=== PATIENT | female | born 1935 | race Caucasian/White ===

== ENCOUNTER 2020-09-09 08:52 | Inpatient (IN) ==
[2020-09-09 09:50] LABS: Basophils % 0.5 %; Eosinophils % 0.7 %; Hematocrit 43.8 % (35.3-44.9); Hemoglobin 13.9 g/dL (11.5-15.4); Immature Granulocytes % 0.5 % (0-4); Lymphocytes % 22.9 %; Mean Corpuscular HGB Conc 31.7 g/dL (31.6-35.5); Mean Corpuscular Hemoglobin 30.9 pg (28.0-33.3); Mean Corpuscular Volume 97.3 fL (83.0-100.0); Mean Platelet Volume 11.1 fL (9.4-12.4); Monocytes # 0.4 K/mcL (0.0-1.3); Monocytes % 9.1 %; Neutrophils # 2.9 K/mcL (1.6-8.9); Platelet Count 186 K/mcL (140-400); Red Cell Distribution Width 13.1 % (11.5-14.5); Segmented Neutrophils % 66.3 %; White Blood Count 4.4 K/mcL (4.3-11.1)
[2020-09-09 09:57] LABS: INR 1.1; Prothrombin Time 12.2 Seconds (9.4-12.1)
[2020-09-09 09:59] LABS: Activated Partial Thrombo Time 27.5 Seconds (26.0-36.0)
[2020-09-09 10:12] LABS: BUN/Creatinine Ratio 23 (6-26); Blood Urea Nitrogen 15 mg/dL (8-23); Calcium 9.1 mg/dL (8.6-10.3); Carbon Dioxide 29 mEq/L (23-29); Chloride 102 mEq/L (98-107); Glucose 131 mg/dL (70-105); Osmolality,Calculated 297 (280-300); Potassium 3.8 mEq/L (3.5-5.1); Sodium 142 mEq/L (136-145); eGFR For African Americans > 60 (> 60); eGFR For Non-African Americans > 60 (> 60)
[2020-09-09 10:13] LABS: Troponin I < 0.03 ng/mL (< 0.04)
[2020-09-09] MEDS ORDERED: Furosemide 40 MG/4 ML VIAL IVP ONE (10:44)
[2020-09-09] MEDS ORDERED: Aspirin Enteric Coated 325 MG Tablet PO SCH (11:00)
[2020-09-09 11:18] LABS: Estimated Average Glucose 126 mg/dl
[2020-09-09 11:26] LABS: Thyroid Stimulating Hormone 2.626 mcIU/mL (0.340-5.600)
[2020-09-09] MEDS ORDERED: Isovue-370 500 ML BOTTLE IVP ONE (12:08)
[2020-09-09] MEDS ORDERED: *HR* Metoprolol 5 MG/5 ML VIAL IVP ONE (12:32)
[2020-09-09] MEDS ORDERED: Melatonin 3 MG TABLET PO PRN (15:23)
[2020-09-09] MEDS ORDERED: Ondansetron ODT 4 MG TAB.RAPDIS SL PRN (15:23)
[2020-09-09] MEDS ORDERED: Naloxone 0.4 MG/ML INJ IVP PRN (15:23)
[2020-09-09] MEDS ORDERED: Mag Hydrox/Al Hydrox/Simeth 30 ML UDC PO PRN (15:23)
[2020-09-09] MEDS ORDERED: Perflutren Lipid Microsphere 1.3 ML in 0.9 % Sodium Chloride 8.7 ML IVP PRN (15:24)
[2020-09-09] MEDS ORDERED: *HR* Heparin 5,000 UNIT/ML VIAL IVP PRN ×2 (16:27)
[2020-09-09] MEDS ORDERED: *HR* Heparin 5,000 UNIT/ML VIAL IVP ONE (16:27)
[2020-09-09] MEDS: Heparin 25,000UNIT/250ML 1/2NS 25,000 UNIT/250 ML IV.SOLN IVC SCH (19:38)
[2020-09-10 02:27] LABS: Hematocrit 42.8 % (35.3-44.9); Hemoglobin 13.4 g/dL (11.5-15.4); Mean Corpuscular HGB Conc 31.3 g/dL (31.6-35.5); Mean Corpuscular Hemoglobin 30.5 pg (28.0-33.3); Mean Corpuscular Volume 97.5 fL (83.0-100.0); Mean Platelet Volume 11.3 fL (9.4-12.4); Platelet Count 191 K/mcL (140-400); Red Blood Count 4.39 M/mcL (3.82-4.97); Red Cell Distribution Width 13.1 % (11.5-14.5)
[2020-09-10 02:46] LABS: BUN/Creatinine Ratio 19 (6-26); Blood Urea Nitrogen 15 mg/dL (8-23); Calcium 8.7 mg/dL (8.6-10.3); Carbon Dioxide 30 mEq/L (23-29); Chloride 101 mEq/L (98-107); Glucose 112 mg/dL (70-105); Osmolality,Calculated 298 (280-300); Potassium 3.7 mEq/L (3.5-5.1); Sodium 143 mEq/L (136-145); Troponin I 0.03 ng/mL (< 0.04); eGFR For African Americans > 60 (> 60); eGFR For Non-African Americans > 60 (> 60)
[2020-09-10] MEDS ORDERED: Acetaminophen 325 MG TABLET PO ONE (05:19)
[2020-09-10] MEDS: Cyanocobalamin (B-12) 1,000 MCG TABLET PO SCH (08:54)
[2020-09-10] MEDS: Aspirin Enteric Coated 81 MG Tablet PO SCH (08:54)
[2020-09-10] MEDS: Furosemide 40 MG/4 ML VIAL IVP SCH ×2 (15:21→19:43)
[2020-09-10] MEDS: Heparin 25,000UNIT/250ML 1/2NS 25,000 UNIT/250 ML IV.SOLN IVC SCH (17:46)
[2020-09-10] MEDS: Metoprolol XL (24 HR) Succ 50 MG TAB.ER.24H PO SCH (19:44)
[2020-09-10 21:22] LABS: BUN/Creatinine Ratio 29 (6-26); Blood Urea Nitrogen 22 mg/dL (8-23); Calcium 9.1 mg/dL (8.6-10.3); Carbon Dioxide 32 mEq/L (23-29); Chloride 97 mEq/L (98-107); Glucose 129 mg/dL (70-105); Osmolality,Calculated 301 (280-300); Potassium 3.7 mEq/L (3.5-5.1); Sodium 143 mEq/L (136-145); eGFR For African Americans > 60 (> 60); eGFR For Non-African Americans > 60 (> 60)
[2020-09-11 06:55] LABS: Basophils % 0.7 %; Eosinophils # 0.2 K/mcL (0.0-0.6); Eosinophils % 3.7 %; Hemoglobin 13.4 g/dL (11.5-15.4); Immature Granulocytes % 0.2 % (0-4); Lymphocytes # 1.1 K/mcL (0.6-4.6); Mean Corpuscular HGB Conc 32.7 g/dL (31.6-35.5); Mean Corpuscular Hemoglobin 31.9 pg (28.0-33.3); Mean Corpuscular Volume 97.6 fL (83.0-100.0); Mean Platelet Volume 11.3 fL (9.4-12.4); Monocytes # 0.4 K/mcL (0.0-1.3); Monocytes % 9.5 %; Neutrophils # 2.8 K/mcL (1.6-8.9); Platelet Count 175 K/mcL (140-400); Segmented Neutrophils % 61.9 %; White Blood Count 4.6 K/mcL (4.3-11.1)
[2020-09-11 07:15] LABS: Chol/HDL Ratio 2.5 (0-4.9)
[2020-09-11 07:25] LABS: BUN/Creatinine Ratio 41 (6-26); Blood Urea Nitrogen 26 mg/dL (8-23); Calcium 8.5 mg/dL (8.6-10.3); Carbon Dioxide 33 mEq/L (23-29); Chloride 100 mEq/L (98-107); Glucose 107 mg/dL (70-105); Magnesium 2.1 mg/dL (1.6-2.6); Osmolality,Calculated 297 (280-300); Potassium 3.5 mEq/L (3.5-5.1); Sodium 141 mEq/L (136-145); Troponin I < 0.03 ng/mL (< 0.04); eGFR For African Americans > 60 (> 60); eGFR For Non-African Americans > 60 (> 60)
[2020-09-11] MEDS: Aspirin Enteric Coated 81 MG Tablet PO SCH (07:53)
[2020-09-11] MEDS: Furosemide 40 MG/4 ML VIAL IVP SCH ×2 (07:54→20:28)
[2020-09-11] MEDS: Cyanocobalamin (B-12) 1,000 MCG TABLET PO SCH (07:54)
[2020-09-11] MEDS: Metoprolol XL (24 HR) Succ 50 MG TAB.ER.24H PO SCH ×2 (07:54→20:28)
[2020-09-11] MEDS ORDERED: Nitroglycerin 1,000 MCG/5 ML VIAL IV ONE (08:41)
[2020-09-11] MEDS ORDERED: *HR* Heparin 10,000 UNIT/10 ML VIAL ONE (08:41)
[2020-09-11] MEDS ORDERED: 0.9 % Sodium Chloride 1,000 ML ONE ×2 (08:41→09:07)
[2020-09-11] MEDS ORDERED: Heparin 1,000 UNITS/500 mL 500 ML ONE (08:41)
[2020-09-11] MEDS ORDERED: ISOVUE-370 200 ML INFUS..BTL ONE (08:41)
[2020-09-11] MEDS ORDERED: *HR* FentaNYL (PF) 100 MCG/2 ML VIAL ONE (09:01)
[2020-09-11] MEDS ORDERED: *HR* Midazolam HCl 2 MG/2 ML VIAL ONE (09:01)
[2020-09-11] MEDS: Spironolactone 12.5 MG TABLET PO SCH (15:02)
[2020-09-11] MEDS: Heparin 25,000UNIT/250ML 1/2NS 25,000 UNIT/250 ML IV.SOLN IVC SCH (17:56)
[2020-09-11] MEDS: *HR* Rivaroxaban 10 MG TABLET PO SCH (18:01)
[2020-09-11] MEDS: Sacubitril/Valsartan 24/26 MG 1 TABLET PO SCH (20:28)
[2020-09-11] MEDS ORDERED: Apixaban 5 MG TABLET PO SCH (21:00)
[2020-09-12 02:46] LABS: Basophils % 0.4 %; Eosinophils # 0.1 K/mcL (0.0-0.6); Eosinophils % 2.5 %; Hematocrit 40.6 % (35.3-44.9); Hemoglobin 12.9 g/dL (11.5-15.4); Immature Granulocytes % 0.4 % (0-4); Lymphocytes # 1.2 K/mcL (0.6-4.6); Lymphocytes % 20.9 %; Mean Corpuscular HGB Conc 31.8 g/dL (31.6-35.5); Mean Corpuscular Volume 97.6 fL (83.0-100.0); Mean Platelet Volume 11.3 fL (9.4-12.4); Monocytes # 0.6 K/mcL (0.0-1.3); Monocytes % 9.8 %; Neutrophils # 3.7 K/mcL (1.6-8.9); Platelet Count 195 K/mcL (140-400); Red Blood Count 4.16 M/mcL (3.82-4.97); Red Cell Distribution Width 13.2 % (11.5-14.5); White Blood Count 5.6 K/mcL (4.3-11.1)
[2020-09-12 03:07] LABS: BUN/Creatinine Ratio 37 (6-26); Blood Urea Nitrogen 33 mg/dL (8-23); Calcium 8.5 mg/dL (8.6-10.3); Carbon Dioxide 31 mEq/L (23-29); Chloride 96 mEq/L (98-107); Glucose 112 mg/dL (70-105); Osmolality,Calculated 300 (280-300); Potassium 3.5 mEq/L (3.5-5.1); Sodium 141 mEq/L (136-145); eGFR For African Americans > 60 (> 60); eGFR For Non-African Americans > 60 (> 60)
[2020-09-12] MEDS: Sacubitril/Valsartan 24/26 MG 1 TABLET PO SCH (08:31)
[2020-09-12] MEDS: Metoprolol XL (24 HR) Succ 50 MG TAB.ER.24H PO SCH (08:32)
[2020-09-12] MEDS: Spironolactone 12.5 MG TABLET PO SCH (08:32)
[2020-09-12] MEDS: Cyanocobalamin (B-12) 1,000 MCG TABLET PO SCH (08:32)
[2020-09-12] MEDS: Furosemide 40 MG/4 ML VIAL IVP SCH (08:32)
[2020-09-12] MEDS: Aspirin Enteric Coated 81 MG Tablet PO SCH (08:32)
[2020-09-12 15:16] VITALS: BP 108/64
[2020-09-12] MEDS: *HR* Rivaroxaban 10 MG TABLET PO SCH (17:02)
== END 2020-09-12 17:22 | disposition home or self-care (01) | DRG 286 ==
LOC: 2ANU 08:52 → EMEROOARM 08:52 → SUATTDRO 14:38 → 2ANU 15:28
PROVIDERS: ADMIT Family Medicine; ATTEND Family Medicine